=== PATIENT | male | born 1950 | race Caucasian/White ===

== ENCOUNTER 2024-07-21 15:55 | Emergency (ER) | payer OTHER ==
[~2024-07-21] VITALS: Ht 170.2 cm; Wt 69.0 kg
[2024-07-21 17:01] LABS: BASOPHILS ABSOLUTE AUTO 0.01 K/mm3 (0.00-0.23); BASOPHILS PERCENT AUTO 0 % (0-2); EOSINOPHILS ABSOLUTE AUTO 0.01 K/mm3 (0.00-0.68); EOSINOPHILS PERCENT AUTO 0 % (0-6); Hematocrit 40.7 % (37.0-53.0); Hemoglobin 14.1 g/dL (13.5-17.5); IMMATURE GRAN ABSOLUTE AUTO 0.03 K/mm3 (0.00-0.10); IMMATURE GRAN PERCENT AUTO 1 % (0-1); LYMPHOCYTES ABSOLUTE AUTO 0.21 K/mm3 (0.84-5.20); LYMPHOCYTES PERCENT AUTO 3 % (21-46); MONOCYTES ABSOLUTE AUTO 0.12 K/mm3 (0.16-1.47); MONOCYTES PERCENT AUTO 2 % (4-13); Mean Corpuscular HGB 29.6 pg (26.0-34.0); Mean Corpuscular HGB Conc 34.6 g/dL (31.5-36.5); Mean Corpuscular Volume 85 fL (80-100); Mean Platelet Volume 8.8 fL (9.1-12.4); NEUTROPHILS ABSOLUTE AUTO 6.04 K/mm3 (1.96-9.15); NEUTROPHILS PERCENT AUTO 94 % (41-73); Platelet Count 220 K/mm3 (150-400); RDW Coefficient Variation 12.8 % (11.7-14.2); RDW Standard Deviation 39.8 fL (35.1-46.3); Red Blood Cell Count 4.77 M/mm3 (4.30-5.90); White Blood Cell Count 6.42 K/mm3 (4.00-11.30)
[2024-07-21 17:08] LABS: Albumin, Blood 3.2 g/dL (3.4-5.0); Bilirubin, Total 0.7 mg/dL (0.1-1.0); Bun/Creatinine Ratio 21.8 (12.0-20.0); Calcium, Blood 8.7 mg/dL (8.5-10.1); Creatinine, Blood 0.6 mg/dL (0.60-1.20); Globulin, Blood 3.3 g/dL (2.2-4.0); Magnesium, Blood 2.1 mg/dL (1.6-2.4); Potassium, Blood 3.5 mmol/L (3.5-5.5); Total Protein, Blood 6.5 g/dL (6.4-8.2)
[2024-07-21 18:49] LABS: Source, Urine Clean Catch
[2024-07-21 18:57] LABS: Appearance, Urine Hazy (Clear); Bilirubin, Urine Neg (Neg); Blood, Urine Neg (Neg); Color, Urine Yellow (P-Yellow); Glucose Qualitative, Urine Neg (Neg); Ketones, Urine 3+ (Neg); Leukocyte Esterase, Urine 1+ (Neg); Nitrite, Urine Neg (Neg); Protein, Urine 1+ (Neg); Urobilinogen, Urine 2+ (Normal)
[2024-07-21] MEDS ORDERED: Lactated Ringer's 1,000 ML IV ONE (19:35)
[2024-07-21 19:37] LABS: Amorphous Mod (0-Heavy); Bacteria Few /hpf; Red Blood Cells, Urine 0-2 /hpf (0-2); Squamous Epithelial Cells Few /hpf (Few)
[2024-07-21] MEDS ORDERED: Ipratropium/Albuterol SulF 2.5-0.5MG/3 ML Amp INH ONE (21:45)
[2024-07-21] MEDS ORDERED: MethylPREDNISolone Sod Succ 125 MG Vial IV ONE (21:50)
[2024-07-21] MEDS ORDERED: PRED20 PO (22:42)
[2024-07-22] MEDS ORDERED: CHLO25B PO (10:35)
[2024-07-22] MEDS ORDERED: Vitamin D1000 UNI1 PO (10:36)
[2024-07-22] MEDS ORDERED: Prozac20 MG PO (10:36)
== END 2024-07-21 23:06 | disposition home or self-care (01) ==
LOC: ER 15:55
PROVIDERS: Student in an Organized Health Care Education/Training Program
DX: J44.1 Chronic obstructive pulmonary disease with (acute) exacerbation (principal)
CPT/HCPCS: 71046; 80053; 81001; 83735; 83880; 84484; 85025; 87086; 93005; 93010; 94640; 94664; 96361; 96374; 99285-25; J2919; J7120

== ENCOUNTER 2024-07-22 10:07 | Inpatient (IN) | payer OTHER ==
[~2024-07-22] VITALS: Ht 157.5 cm; Wt 61.5 kg
[~2024-07-22 10:07] MED LIST: PRED20 PO
[2024-07-22] MEDS ORDERED: MethylPREDNISolone Sod Succ 125 MG Vial IV ONE (10:15)
[2024-07-22] MEDS ORDERED: Albuterol 2.5 MG/3 ML VIAL INH SCH (10:15)
[2024-07-22 10:33] LABS: BASOPHILS PERCENT AUTO 0 % (0-2); EOSINOPHILS ABSOLUTE AUTO 0.05 K/mm3 (0.00-0.68); EOSINOPHILS PERCENT AUTO 1 % (0-6); Hematocrit 39.2 % (37.0-53.0); IMMATURE GRAN ABSOLUTE AUTO 0.02 K/mm3 (0.00-0.10); IMMATURE GRAN PERCENT AUTO 0 % (0-1); LYMPHOCYTES ABSOLUTE AUTO 0.35 K/mm3 (0.84-5.20); LYMPHOCYTES PERCENT AUTO 7 % (21-46); MONOCYTES ABSOLUTE AUTO 0.32 K/mm3 (0.16-1.47); MONOCYTES PERCENT AUTO 6 % (4-13); Mean Corpuscular HGB 30.2 pg (26.0-34.0); Mean Corpuscular HGB Conc 35.7 g/dL (31.5-36.5); Mean Corpuscular Volume 85 fL (80-100); NEUTROPHILS ABSOLUTE AUTO 4.36 K/mm3 (1.96-9.15); NEUTROPHILS PERCENT AUTO 85 % (41-73); Platelet Count 242 K/mm3 (150-400); RDW Coefficient Variation 12.7 % (11.7-14.2); RDW Standard Deviation 38.5 fL (35.1-46.3); Red Blood Cell Count 4.63 M/mm3 (4.30-5.90)
[2024-07-22] MEDS ORDERED: CHLO25B PO (10:35)
[2024-07-22] MEDS ORDERED: Prozac20 MG PO (10:36)
[2024-07-22] MEDS ORDERED: Vitamin D1000 UNI1 PO (10:36)
[2024-07-22 11:01] LABS: Albumin, Blood 3.2 g/dL (3.4-5.0); Albumin/Globulin Ratio 0.9 (0.8-1.8); Bilirubin, Total 0.7 mg/dL (0.1-1.0); Calcium, Blood 9.2 mg/dL (8.5-10.1); Creatinine, Blood 0.58 mg/dL (0.60-1.20); Globulin, Blood 3.4 g/dL (2.2-4.0); Potassium, Blood 4.1 mmol/L (3.5-5.5); Total Protein, Blood 6.6 g/dL (6.4-8.2)
[2024-07-22] MEDS ORDERED: Ipratropium/Albuterol SulF 2.5-0.5MG/3 ML Amp INH PRN (14:25)
[2024-07-22] MEDS ORDERED: CefTRIAXone Sodium 1,000 MG in NS 100 ML IV SCH (14:30)
[2024-07-22] MEDS ORDERED: NS 1,000 ML IV ONE ×2 (14:35→16:55)
[2024-07-22] MEDS ORDERED: Magnesium Sulf 2 GM/Water 50ML 50 ML IV STA (14:50)
[2024-07-22] MEDS ORDERED: Azithromycin 500 MG in NS 250 ML IV SCH (15:00)
[2024-07-22] MEDS ORDERED: Diltiazem HCl 5 MG / ML 5ML Vial IV PRN (15:10)
[2024-07-22 16:12] VITALS: BP 148/90
[2024-07-22 16:33] LABS: Adenovirus Not Detected (NOT DETECT); Bordetella pertussis Not Detected (NOT DETECT); Chlamydophila pneumoniae Not Detected (NOT DETECT); Coronavirus 229E Not Detected (NOT DETECT); Coronavirus HKU1 Not Detected (NOT DETECT); Coronavirus NL63 Not Detected (NOT DETECT); Coronavirus OC43 Not Detected (NOT DETECT); Human Metapneumovirus Not Detected (NOT DETECT); Human Rhinovirus/Enterovirus Not Detected (NOT DETECT); Influenza A/2009-H1 Not Detected (NOT DETECT); Influenza A/H1 Not Detected (NOT DETECT); Influenza A/H3 Not Detected (NOT DETECT); Influenza B Not Detected (NOT DETECT); Mycoplasma pneumoniae Not Detected (NOT DETECT); Parainfluenza Virus 1 Not Detected (NOT DETECT); Parainfluenza Virus 2 Not Detected (NOT DETECT); Parainfluenza Virus 3 Not Detected (NOT DETECT); Parainfluenza Virus 4 Not Detected (NOT DETECT); Respiratory Syncytial Virus Not Detected (NOT DETECT); SARS-Cov-2 (COVID-19), BioFire Not Detected (NOT DETECT)
--- NOTE | 2024-07-22 17:42 | NUR ---
PT ARRIVED TO UNIT @ 1612. PT WAS ABLE TO TRANSFER TO BED SBA. PT IS A/0X4, NO NEURO ABNORMALITIES. PT HAS REMAINED SINUS TACH 110-120'S, HAS TELE ON. PT ARRIVED ON 2L OF 02 VIA NC STATING 92%, PT O2 DEMANDS INCREASED, WHEEZING T/O LUNGS UPON AUSCULTATION WITH DIMINISHED LUNG BASES.12L O2 VIA OXY MASK, RT NOTIFIED. PRIMARY RN NOTIFIED DR. KENNEDY. PT NOW ON 6L O2 VIA OXY MASK STATING 96%. RECIEVED FIRST DOSE OF STEROIDS AND BREATHING TREATMENT. ONE BRUISE LOCATED ON R UPPER ARM FROM IV IN ER 07/21/24. PT STATES NO CHEST PAIN OR DIFFICULTY BREATHING AT THIS MOMENT. PT TOLERATING PO INTAKE AT THIS TIME. WILL REPORT ONCOMING SHIFT.
[2024-07-22] MEDS ORDERED: MethylPREDNISolone Sod Succ 125 MG Vial IV SCH (18:00)
[2024-07-22 19:20] VITALS: BP 109/67
[2024-07-23 00:03] VITALS: BP 125/66
[2024-07-23 04:16] VITALS: BP 145/91
[2024-07-23 05:15] LABS: BASOPHILS PERCENT AUTO 0 % (0-2); EOSINOPHILS PERCENT AUTO 0 % (0-6); Hematocrit 37.2 % (37.0-53.0); Hemoglobin 12.7 g/dL (13.5-17.5); IMMATURE GRAN ABSOLUTE AUTO 0.05 K/mm3 (0.00-0.10); IMMATURE GRAN PERCENT AUTO 1 % (0-1); LYMPHOCYTES ABSOLUTE AUTO 0.25 K/mm3 (0.84-5.20); LYMPHOCYTES PERCENT AUTO 3 % (21-46); MONOCYTES PERCENT AUTO 3 % (4-13); Mean Corpuscular HGB 29.4 pg (26.0-34.0); Mean Corpuscular HGB Conc 34.1 g/dL (31.5-36.5); Mean Corpuscular Volume 86 fL (80-100); Mean Platelet Volume 8.9 fL (9.1-12.4); NEUTROPHILS ABSOLUTE AUTO 8.13 K/mm3 (1.96-9.15); NEUTROPHILS PERCENT AUTO 93 % (41-73); Platelet Count 227 K/mm3 (150-400); RDW Coefficient Variation 12.8 % (11.7-14.2); RDW Standard Deviation 40.3 fL (35.1-46.3); Red Blood Cell Count 4.32 M/mm3 (4.30-5.90); White Blood Cell Count 8.73 K/mm3 (4.00-11.30)
--- NOTE | 2024-07-23 05:21 | NUR ---
SHIFT SUMMARY PT A&O X4, CALM, COOPERATIVE TO CARE. HR IN THE 90'S-100'S. HE DENIES CP/PRESSURE, NUMB/TINGLING, SBP STABLE. O2 AT 95% ON 4L VIA HFNC. HE DOES HAVE SOB WITH EXERTION. PT HAD ONE EPISODE T/O SHIFT WHERE HE GOT UP TO USE URINAL AT BEDSIDE AND BECAME SOB WITH RR AT 28. INSTRUCTED PT ON PURSED LIP BREATHING AND RT TO BEDSIDE FOR BREATHING TX. PT TOLERATED WELL WITH THESE AND RR DOWN TO 22 AND DECREASED WOB. PT RESTING IN BED AT THIS TIME. HE DENIES ANY QUESTIONS OR CONCERNS. WILL MONITOR PT AND REPORT TO ONCOMING RN.
[2024-07-23 05:44] LABS: Albumin, Blood 2.9 g/dL (3.4-5.0); Bilirubin, Total 0.4 mg/dL (0.1-1.0); Bun/Creatinine Ratio 28.7 (12.0-20.0); Calcium, Blood 8.9 mg/dL (8.5-10.1); Creatinine, Blood 0.63 mg/dL (0.60-1.20); Potassium, Blood 3.7 mmol/L (3.5-5.5); Total Protein, Blood 5.9 g/dL (6.4-8.2)
[2024-07-23 07:43] VITALS: BP 147/83
[2024-07-23] MEDS ORDERED: NS 250 ML IV PRN (08:00)
[2024-07-23] MEDS ORDERED: Lactobacil 2-S.Thermo-Bifido 1 1 Cap PO SCH (09:00)
[2024-07-23] MEDS ORDERED: Nicotine 21 MG PATCH TOP SCH (09:00)
[2024-07-23] MEDS ORDERED: FLUoxetine HCL 20 MG CAP PO SCH (09:00)
[2024-07-23] MEDS ORDERED: Cholecalciferol 1000 Unit Tablet (=25MCG) PO SCH (09:00)
[2024-07-23] MEDS ORDERED: Losartan Potassium 25 MG Tab PO SCH (09:00)
[2024-07-23] MEDS ORDERED: Enoxaparin 40 MG/0.4 ML SYR SC SCH (09:00)
[2024-07-23] MEDS ORDERED: Ipratropium/Albuterol SulF 2.5-0.5MG/3 ML Amp INH SCH (11:15)
[2024-07-23] MEDS ORDERED: Albuterol 2.5 MG/3 ML VIAL INH PRN (11:15)
--- NOTE | 2024-07-23 11:27 | NUR ---
"Spiritual Care Visit | Pt. Request Pt. is awake and sitting in a chair when he welcomed my visit. Pt. is pleasant. Facilitated a life review. Pt. verbalized about his and family life. Listened with interest and empathy. Rapport is estbalish. Considered matters of mery and belief. Pt. displayed evidence of trust. Prayed with the Pt. Pt. verbalized gratitude for the spiritual care visit."
[2024-07-23 11:55] VITALS: BP 142/89
[2024-07-23 15:13] VITALS: BP 149/85
[2024-07-23] MEDS ORDERED: Calcium Carbonate 500 MG Tab Chew PO PRN (16:20)
--- NOTE | 2024-07-23 18:02 | NUR ---
End of shift note. Pt has been OOB in the recliner for much of the shift. Pt reports his only complaint is feeling like he has low lung volume. O2 sats have been >92% on 3L. Pt does get notably tachpenic with any movement or eating. Lots of education given on breathing techniques and energy conservation. Some signs of anxiety noted, Pt has been managing fairly well this shift. Pt was able to walk into the bathroom with FWW. Pt took about 5-10min to recover. Fair PO intake, ensure shakes encouraged. Pt is able to make needs known, call light is within reach.
[2024-07-23 19:29] VITALS: BP 114/70
[2024-07-23] MEDS ORDERED: Melatonin 1 MG Tablet PO ONE (21:10)
[2024-07-23] MEDS ORDERED: HyDROXyzine HCl 25 MG Tab PO PRN (21:15)
[2024-07-24] VITALS (9 sets, daily range): BP systolic 103–138; BP diastolic 64–88
[2024-07-24 04:00] LABS: Magnesium, Blood 2.1 mg/dL (1.6-2.4); Phosphorus, Blood 3.2 mg/dL (2.5-4.9)
--- NOTE | 2024-07-24 05:27 | NUR ---
SHIFT SUMMARY PT A&O X4, ANXIOUS AT TIMES, COOPERATIVE TO CARE. HR IN THE 80'S-100'S, HR INCRASES WITH ACTIVITY TO THE 120'S. HE DENIES ANY CP/PRESSURE, NUMB/TINGLING, SBP STABLE. PT HAD 5 BEAT RUN OF VTACH DURING THE NIGHT, VITALS SIGNS CHECKED, STABLE, PT DENIED ANY CP/PRESSURE, OR PALPITATIONS. O2 88-92% ON 3L VIA HFNC. PT DOES REQUIRE A SLIGHT INCREASE IN O2 TO 4-5L WITH AMBULATION. HE GETS SOB WITH ACTIVITY. FLUTTER VALVE AT BEDSIDE, PT EDUCATED ON PROPER USE AND IS USING WHILE AWAKE. PT DID MENTION DIFFICULTY SLEEPING AND FEELING VERY ANXIOUS. CALL PLACED TO PROVIDER. ORDERS PLACED FOR ONE TIME DOSE OF MELATONIN AND PRN ATARAX. PT AMBULATED TO [facility] AND BACK THREE TIMES T/O SHIFT. HE DID HAVE SOME SOB BUT RECOVERED QUICKLY. PT RESTING IN BED AT THIS TIME. CALL LIGHT IN REACH. WILL MONITOT PT AND REPORT TO ONCOMING RN.
[2024-07-24 07:23] LABS: Hematocrit 35.5 % (37.0-53.0); Hemoglobin 12.1 g/dL (13.5-17.5); Mean Corpuscular HGB 29.8 pg (26.0-34.0); Mean Corpuscular HGB Conc 34.1 g/dL (31.5-36.5); Mean Corpuscular Volume 87 fL (80-100); Mean Platelet Volume 9.4 fL (9.1-12.4); Platelet Count 235 K/mm3 (150-400); RDW Coefficient Variation 12.9 % (11.7-14.2); RDW Standard Deviation 41.6 fL (35.1-46.3); Red Blood Cell Count 4.06 M/mm3 (4.30-5.90); White Blood Cell Count 8.79 K/mm3 (4.00-11.30)
[2024-07-24 07:30] LABS: Bun/Creatinine Ratio 41.2 (12.0-20.0); Creatinine, Blood 0.66 mg/dL (0.60-1.20); Potassium, Blood 4.1 mmol/L (3.5-5.5)
[2024-07-24] MEDS ORDERED: Multivitamins 1 Tab PO SCH (09:00)
[2024-07-24] MEDS ORDERED: Thiamine HCl 100 MG Tab PO SCH (09:00)
[2024-07-24] MEDS ORDERED: Metoprolol Tartrate 25 MG Tab PO SCH (09:00)
--- NOTE | 2024-07-24 09:39 | NUR ---
DR KENNEDY AND DR DOSHI ROUNDING IN ROOM
[2024-07-24] MEDS ORDERED: Azithromycin 250 MG Tab PO ONE (11:15)
--- NOTE | 2024-07-24 12:04 | NUR ---
CALLED DR DOSHI TO CONFIRM ADMIN OF PO ABX, OKAYED TO DC IV ABX
[2024-07-24] MEDS ORDERED: Azithromycin 500 MG in NS 250 ML IV ONE (13:00)
--- NOTE | 2024-07-24 18:46 | NUR ---
SHIFT SUMMARY PATIENT WAS MADE MEDICAL FLOOR STATUS. PATIENT ABLE TO MAINTAIN SATS ON ROOM AIR, CONTINUES TO HAVE DYSPNEA WITH MILD EXERTION. ABLE TO TRANFER FROM BED TO CHAIR WITH MIN ASSIST. USING URINAL AT BEDSIDE. A/O X4. STARTED METOPROLOL THIS SHIFT, DECREASED OVERALL HR FROM MID 100'S TO MID 90'S-MID 80'S, NO INCREASED WOB NOTED SO FAR. A/OX4. ABLE TO MAKE NEEDS KNOWN. CALL LIGHT IN REACH, CARES ONGOING.
[2024-07-24] MEDS ORDERED: MethylPREDNISolone Sod Succ 125 MG Vial IV SCH (21:00)
[2024-07-24] MEDS ORDERED: Cefdinir 300 MG Cap PO SCH (21:00)
[2024-07-25 03:15] VITALS: BP 148/85
[2024-07-25 05:18] LABS: Hematocrit 39.2 % (37.0-53.0); Hemoglobin 13.1 g/dL (13.5-17.5); Mean Corpuscular HGB 29.6 pg (26.0-34.0); Mean Corpuscular HGB Conc 33.4 g/dL (31.5-36.5); Mean Corpuscular Volume 89 fL (80-100); Mean Platelet Volume 9.1 fL (9.1-12.4); Platelet Count 253 K/mm3 (150-400); RDW Coefficient Variation 12.9 % (11.7-14.2); RDW Standard Deviation 41.6 fL (35.1-46.3); Red Blood Cell Count 4.43 M/mm3 (4.30-5.90)
[2024-07-25 05:35] LABS: Magnesium, Blood 2.2 mg/dL (1.6-2.4)
[2024-07-25 05:36] LABS: Bun/Creatinine Ratio 39.8 (12.0-20.0); Calcium, Blood 8.9 mg/dL (8.5-10.1); Creatinine, Blood 0.75 mg/dL (0.60-1.20); Phosphorus, Blood 3.2 mg/dL (2.5-4.9); Potassium, Blood 4.4 mmol/L (3.5-5.5)
--- NOTE | 2024-07-25 05:49 | NUR ---
SHIFT SUMMARY PT A&O X4, ANXIOUS AT TIMES, COOPERATIVE TO CARE. HR IN THE 80'S-100'S, SR-ST. PT DID HAVE SOME ST ELEVATION NOTED ON TELE BUT THIS WAS UNCHANGED FROM EKG ON ADMISSION. HE DENIES CP/PRESSURE, NUMB/TINGLING, SBP STABLE. O2 BETWEEN 88-92% ON RA. HE DOES HAVE SOME SOB WITH EXERTION, RECOVERS QUICKLY. PT EXPRESSED HE IS ANXIOUS ABOUT DISCHARGE. CONVERSATION WITH PT ABOUT CONCERNS AND REASSURED HIM. CALL LIGHT IN REACH. WILL MONITOR PT AND REPORT TO ONCOMING RN.
--- NOTE | 2024-07-25 07:08 | NUR ---
ASSUMPTION NOTE: THIS RN TO ASSUME CARE OF PATIENT. PATIENT RESTING IN BED, EASILY AROUSABLE. PATIENT DENIES NEEDING ANYTHING AT THIS TIME, HAS CALL LIGHT WITHIN REACH & BED IN LOWEST POSITION.
[2024-07-25 07:42] VITALS: BP 138/94
--- NOTE | 2024-07-25 09:22 | NUR ---
MD ROUNDED: MD AND RESIDENT ROUNDED AND PATIENT AWARE HE WILL BE GOING HOME TODAY THIS AFTERNOON. MEDICATIONS TO BE SENT TO [facility], PATIENT AWARE AND STATED THAT WILL BE FINE.
[2024-07-25] MEDS ORDERED: PredniSONE 20 MG Tab PO SCH (11:05)
[2024-07-25 11:58] VITALS: BP 142/99
[2024-07-25] MEDS ORDERED: ALBU2.5V5 INH (12:59)
[2024-07-25] MEDS ORDERED: Calcium Carbon500 MG PO (13:00)
[2024-07-25] MEDS ORDERED: CEFD300 PO (13:01)
[2024-07-25] MEDS ORDERED: HYDHCL25 PO (13:04)
[2024-07-25] MEDS ORDERED: VISBIOME 112.51 EACH PO (13:07)
[2024-07-25] MEDS ORDERED: LOSA25 PO (13:08)
[2024-07-25] MEDS ORDERED: METO25 PO (13:09)
[2024-07-25] MEDS ORDERED: MULVITA PO (13:09)
[2024-07-25] MEDS ORDERED: B-1100 M1 PO (13:12)
--- NOTE | 2024-07-25 14:32 | NUR ---
DISCHARGE NOTE: PATIENT WAS DISCHARGED AND LEFT VIA WHEELCHAIR TO TO HIS FRIEND WAITING FOR HIM. PATIENT IV AND TELE WAS REMOVED. PATIENT TOOK ALL PERSONAL BELONGINGS AND DISCHARGE PACKET. AWARE TO CALL [facility] TOMORROW TO SCHEDULE A FOLLOW UP APPOINTMENT. MEDICATIONS SENT TO [facility] PER PATIENT REQUEST AND PATIENT TO BOARD MEMBER.
== END 2024-07-25 16:00 | disposition home or self-care (01) | DRG 189 ==
LOC: ER 10:07 → ERHOLD 10:08 → PCU 15:27
PROVIDERS: Emergency Medicine; Family Medicine; ADMIT Hospitalist
DX: J96.01 Acute respiratory failure with hypoxia (principal); I47.10 Supraventricular tachycardia, unspecified; E87.1 Hypo-osmolality and hyponatremia; J44.9 Chronic obstructive pulmonary disease, unspecified; I49.3 Ventricular premature depolarization; I49.1 Atrial premature depolarization; F17.210 Nicotine dependence, cigarettes, uncomplicated; F41.8 Other specified anxiety disorders; I10 Essential (primary) hypertension; T50.2X5A Adverse effect of carbonic-anhydrase inhibitors, benzothiadiazides and other diuretics, initial encounter; Z88.8 Allergy status to other drugs, medicaments and biological substances; Z79.52 Long term (current) use of systemic steroids; Z60.2 Problems related to living alone
CPT/HCPCS: 0202U; 36415; 71045; 80048; 80053; 83735; 83880; 84100; 84443; 84484; 85025; 85027; 85379; 87070; 87205; 93005; 93010; 93306; 94640; 94644; 94664; 94760; 94762; 96372; 96374; 96375; 96376; 99285-25; A9270; G0378; J0456; J0696; J1650; J2919; J3475; J7030; J7050; J7512

== ENCOUNTER 2025-02-14 21:38 | Emergency (ER) | payer OTHER ==
[~2025-02-14] VITALS: Ht 170.2 cm; Wt 70.3 kg
[~2025-02-14 21:38] MED LIST changes: +ALBU2.5V5 INH; +B-1100 M1 PO; +CEFD300 PO; +CHLO25B PO; +Calcium Carbon500 MG PO; +HYDHCL25 PO; +LOSA25 PO; +METO25 PO; +MULVITA PO; +Prozac20 MG PO; +VISBIOME 112.51 EACH PO; +Vitamin D1000 UNI1 PO
[2025-02-14 22:00] LABS: BASOPHILS ABSOLUTE AUTO 0.02 K/mm3 (0.00-0.23); BASOPHILS PERCENT AUTO 0 % (0-2); EOSINOPHILS ABSOLUTE AUTO 0.14 K/mm3 (0.00-0.68); EOSINOPHILS PERCENT AUTO 3 % (0-6); Hematocrit 40.7 % (37.0-53.0); Hemoglobin 13.6 g/dL (13.5-17.5); IMMATURE GRAN ABSOLUTE AUTO 0.02 K/mm3 (0.00-0.10); IMMATURE GRAN PERCENT AUTO 0 % (0-1); LYMPHOCYTES ABSOLUTE AUTO 0.90 K/mm3 (0.84-5.20); LYMPHOCYTES PERCENT AUTO 18 % (21-46); MONOCYTES ABSOLUTE AUTO 0.57 K/mm3 (0.16-1.47); MONOCYTES PERCENT AUTO 11 % (4-13); Mean Corpuscular HGB Conc 33.4 g/dL (31.5-36.5); Mean Corpuscular Volume 87 fL (80-100); NEUTROPHILS ABSOLUTE AUTO 3.43 K/mm3 (1.96-9.15); NEUTROPHILS PERCENT AUTO 68 % (41-73); NRBC ABSOLUTE 0.00 K/mm3 (0.00-0.02); NRBC Auto 0.0 /100 WBC (0.0-0.2); Platelet Count 207 K/mm3 (150-400); RDW Coefficient Variation 12.3 % (11.7-14.2); RDW Standard Deviation 39.4 fL (35.1-46.3)
[2025-02-14 22:48] LABS: Alanine Aminotransfer (ALT/SGP 17.0 U/L (12-78); Albumin, Blood 3.2 g/dL (3.4-5.0); Albumin/Globulin Ratio 1.1 (0.8-1.8); Anion Gap 7.0 mmol/L (3-11); Aspartate Aminotrans (AST/SGOT 10.0 U/L (12-37); Bilirubin, Total 0.4 mg/dL (0.1-1.0); Blood Urea Nitrogen 13.0 mg/dL (8-24); CO2, Blood 31.0 mmol/L (21-32); Calcium, Blood 8.7 mg/dL (8.5-10.1); Chloride, Blood 98.0 mmol/L (98-108); Creatinine, Blood 0.65 mg/dL (0.60-1.20); Globulin, Blood 2.9 g/dL (2.2-4.0); Glucose, Blood 115.0 mg/dL (70-99); Potassium, Blood 3.7 mmol/L (3.5-5.5); Sodium, Blood 132.0 mmol/L (136-145); Total Protein, Blood 6.1 g/dL (6.4-8.2)
== END 2025-02-15 03:54 | disposition home or self-care (01) ==
LOC: ER 21:38
PROVIDERS: Student in an Organized Health Care Education/Training Program
DX: R19.7 Diarrhea, unspecified (principal); E86.0 Dehydration; R11.0 Nausea; I10 Essential (primary) hypertension; J44.9 Chronic obstructive pulmonary disease, unspecified; Z88.8 Allergy status to other drugs, medicaments and biological substances; Z79.899 Other long term (current) drug therapy; Z59.89 Other problems related to housing and economic circumstances
CPT/HCPCS: 71046; 80053; 83690; 83880; 84484; 85025; 93005; 93010; 99284-25